=== PATIENT | female | born 1990 | race Caucasian/White ===

== ENCOUNTER 2019-06-22 10:51 | Outpatient (CLI) | payer MEDICAID, SELFPAY ==
[2019-06-22 13:36] LABS: Ferritin 55 ng/mL (8-252)
== END 2019-06-22 11:11 ==
PROVIDERS: Visit Provider Nurse Practitioner
DX: M25.50 Pain in unspecified joint (principal)
CPT/HCPCS: 36415; 82728

== ENCOUNTER 2020-04-11 18:46 | Emergency (ER) | payer MEDICAID, SELFPAY ==
[2020-04-11 18:59] VITALS: BP 131/86; PULSE 106; RESP 18; TEMP 36.8; O2SAT 100
--- NOTE | 2020-04-11 19:03 | ED.GENADUL_ITS ---
Discharge Plan Disposition Patient Disposition: HOME Condition: Good Discharge Details Clinical Impression: Finger laceration Primary Care Provider: Margarette Boyle ED Provider: Aide Salcedo Home Meds and New Rx's Prescriptions: Continued ropinirole 1 mg tablet 1 mg PO HS RF: 0 sertraline 100 mg tablet 100 mg PO DAILY RF: 0 quetiapine [Seroquel] 200 mg Tablet 200 mg PO HS RF: 0 hydroxyzine HCl 50 mg tablet 50 mg PO DAILY RF: 0 topiramate 100 mg tablet 100 mg PO DAILY RF: 0 buprenorphine-naloxone [Suboxone] 12-3 mg film 1 film sublingual DAILY RF: 0 Discharge Instructions Instructions: Finger Laceration (ED) Additional Instructions: Keep wound clean, dry, covered. Tylenol and/or ibuprofen as needed for discomfort. Please monitor symptoms?including redness, warmth, drainage, increased pain, fever/chills. Develop these or other new/worsening symptoms to seek care urgently once again. Otherwise, please return in 1 week for suture removal. Referrals: Margarette Boyle [Primary Care Provider] - Medical Decision Making Patient is a 29-year-old [id number] female presented to complaint of laceration to left thumb. She reports a prior to arrival she was trying to pick something off of her phone with a razor when she slipped and cut her left thumb. She denies other injury the time of the incident. Denies any numbness or tingling. Tetanus was updated last January. Patient is status post tubal ligation. On exam, patient appears anxious. She has a curvilinear 2 cm laceration in the subtenons tissue. Deep structures are intact. Sensation is intact. No ligamentous injury is noted. Good range of motion of the thumb. Patient discussed with/benefits as well as expected procedural steps associated with closure. She was understanding and wished to proceed. Please see procedure note. Patient tolerated this well. Wound is explored to base in a bloodless field no foreign body or debris noted. Wound edges easily reapproximated with #3 simple interrupted. Patient I discussed care of stitches and care of the wound at length. We discussed the signs symptoms of infection when to seek care urgently once again. We discussed activities that she should avoid which would place her at increased risk of infection. She will either follow-up here or with her primary care in 1 week for suture removal. Patient does not live locally but does have primary care at her home. All of her questions and concerns were addressed and she is in agreement this plan. HPI General Mode of arrival: ambulatory . Date/Time Provider Initiated Documentation: 04/11/20 18:50 . Limitations to Documentation: no limitations . Information obtained by: patient and RN notes reviewed . History of Present Illness 29 year old F presents to the emergency department with the chief complaint of left thumb leaceration, described as moderate, with intensity rated at 6. Quality is described as stabbing, and is localized to the left and upper extremity. Patient reports no radiation. Patient started experiencing this minute(s) and it has been constant. Immobilization improves symptom(s), Movement worsens symptoms . Patient notes no other symptoms.. Patient did receive the following treatments prior to arrival, none Related Data Home Medications Medication Instructions Recorded Confirmed buprenorphine-naloxone [Suboxone] 1 film SUBLINGUAL DAILY 04/11/20 04/11/20 hydroxyzine HCl 50 mg PO DAILY 04/11/20 04/11/20 quetiapine [Seroquel] 200 mg PO HS 04/11/20 04/11/20 ropinirole 1 mg PO HS 04/11/20 04/11/20 sertraline 100 mg PO DAILY 04/11/20 04/11/20 topiramate 100 mg PO DAILY 04/11/20 04/11/20 Allergies Allergy/AdvReac Type Severity Reaction Status Date / Time chlorhexidine AdvReac Intermediate Skin Rash Unverified 03/10/13 10:48 iodine AdvReac Intermediate Hives Unverified 04/11/20 19:06 General Stated Complaint: Laceration RAND: 4 Review of Systems Constitutional Constitutional: Reports as per HPI, Denies chills and Denies fever(s) Musculoskeletal Musculoskeletal: Reports as per HPI Integumentary/Breasts Skin/Breast: Reports as per HPI Neurologic Neurologic: Reports as per HPI, Denies sensory deficit and Denies paresthesias [facility] Social History Smoking/Tobacco Use Status: Current every day Tobacco Type: cigarettes Smoking risk assessment performed?: Yes Alcohol Intake: current Alcohol Intake frequency: 3 or more drinks per day Drug use: Daily Substance use type: marijuana Do you feel safe at home: Yes Do you feel safe in your relationship?: Yes Exam Const General: cooperative, healthy appearing, comfortable, no acute distress and well developed Nutritional Appearance: average body habitus and well nourished Orientation: alert and awake Resp Effort & Inspection: normal respiratory effort, able to speak in complete sentences and no respiratory distress Cardio Rate: regular rate Rhythm: regular rhythm Skin Trauma: laceration Neuro General: patient alert and patient awake Cognition: normal cognition Speech: speech normal Gait: normal gait Sensory Exam: no sensory deficits noted Extrem Hand/finger images: 1. 2cm curvilinear laceration into subq. Small amount of bleeding. Wound edges approximate well. Sensation intact distally. Normal capillary refill time. No ligamentous injury Psych Appearance: grossly normal and well kempt Mental Status: mental status grossly normal Speech and Movement: speech and movement normal Course Vital Signs Vital signs: Vital Signs Temperature 36.8 C 04/11/20 18:59 Pulse 106 H 04/11/20 18:59 Respiratory Rate 18 04/11/20 18:59 Blood Pressure 131/86 04/11/20 18:59 Pulse Oximetry 100 04/11/20 18:59 Temperature 36.8 C 04/11/20 18:59 Temperature Source Skin 04/11/20 18:59 Pulse 106 H 04/11/20 18:59 Respiratory Rate 18 04/11/20 18:59 Blood Pressure 131/86 04/11/20 18:59 Blood Pressure Position Sitting 04/11/20 18:59 Pulse Oximetry 100 04/11/20 18:59 Oxygen Delivery Method Room Air 04/11/20 18:59 Oxygen Flow Rate 0 04/11/20 18:59 Pain Level 6 04/11/20 18:59 Procedures Laceration Laceration 1: Site: hand Side (If applicable): left Size (cm): 2 Description: linear Depth: simple, single layer Local Anesthetic: Lidocaine 1% Amount of anesthesia used (mL): 4 Pre-repair: wound explored, irrigated extensively and deep structures intact Skin layer closed with: nylon Size (cm): 5-0 Number of sutures: 3
[2020-04-11] MEDS: Lidocaine 1% Multi-Dose 50 ML VIAL (19:26)
== END 2020-04-11 20:09 | disposition home or self-care (01) ==
PROVIDERS: Emergency Provider Physician Assistant; PCP Nurse Practitioner
DX: S61.012A Laceration without foreign body of left thumb without damage to nail, initial encounter (principal); W26.0XXA Contact with knife, initial encounter
CPT/HCPCS: 12001